=== PATIENT | female | born 1965 | race Caucasian/White ===

== ENCOUNTER → 2016-10-31 | Outpatient (CLI) | payer OTHER ==
--- NOTE | ~2016-10-31 | EE ---
Unit #: [id number] #: [id number] Patient: EVELYN MILLS [id number] [address] [place], [place] [address] [id number] O MR#: [id number] NAME: EVELYN MILLS : 1965 SEX: F STUDY DATE/TIME: 10/31/2016 UNIT: CEEG ROOM: STUDY DESCRIPTION: EEG Attending Physician: Barbi Haas M.D. Referring Physician: Barbi Haas M.D. Primary Care Physician: Leodan Alba M.D. NEURODIAGNOSTICS REPORT EXAM ASSOCIATE PUBLISHER Dania REASON FOR STUDY Seizures. TECHNICAL INFORMATION This is a routine EEG performed using the standard International 10-20 System of electrode placement. Photic stimulation was performed. Hyperventilation was not performed. REPORT Throughout the entire study, the best background rhythm seen is approximately 10-11 Hz. This rhythm is seen in both posterior head regions symmetrically and does attenuate to eye opening and closure. Photic stimulation was performed which did not elicit any epileptiform abnormalities. However, a good photic driving response is seen. Hyperventilation was not performed. There was no sleep recorded during the EEG. INTERPRETATION This is a normal awake EEG. A normal EEG does not rule out the possibility of a seizure disorder. Clinical correlation is advised. Dictated by... Emile Martinez II., M.D. GWS/ariela TD: 11/06/2016 13:20 JOB #: [id number] Unit #: [id number] #: [id number] Patient: EVELYN MILLS NEURODIAGNOSTICS REPORT Page 1 of 1 X NEURODIAGNOSTICS REPORT
== END | disposition home or self-care (01) ==
LOC: CEEG 07:18
DX: R40.4 Transient alteration of awareness (principal); R41.3 Other amnesia
CPT/HCPCS: 95816